=== PATIENT | female | born 1985 | race Caucasian/White ===

== ENCOUNTER 2018-11-29 10:15 | Emergency (ER) | payer OTHER ==
--- NOTE | 2018-11-29 11:28 | EDM.PDOC ---
ED HPI GENERAL MEDICAL PROBLEM - General Chief Complaint: Lower Extremity Injury/Pain Stated Complaint: fall right ankle injury Time Seen by Provider: 11/29/18 10:45 Source of Information: Reports: Patient History Limitations: Reports: No Limitations - History of Present Illness INITIAL COMMENTS - FREE TEXT/NARRATIVE: This patient presents to the ED for evaluation of right ankle pain. She states she fell rolling her ankle several hours ago. She denies other injuries or concerns. Onset: Sudden Onset Date: 11/29/18 Onset Time: 02:30 right ankle Pain Score (Numeric/FACES): 4 - Related Data Allergies Allergy/AdvReac Type Severity Reaction Status Date / Time hydromorphone [From Dilaudid] Allergy Other Verified 11/29/18 10:16 Home Meds: Home Meds metFORMIN [Glucophage] 1,000 mg PO BIDMEALS 11/29/18 [History] Review of Systems - Review of Systems Review Of Systems: ROS reveals no pertinent complaints other than HPI. Musculoskeletal: Reports: Joint Pain, Joint Swelling ED EXAM, GENERAL - Physical Exam Exam: See Below Exam Limited By: No Limitations General Appearance: Alert, WD/WN, No Apparent Distress Eye Exam: Bilateral Eye: PERRL Ears: Normal External Exam Nose: Normal Inspection Throat/Mouth: Normal Inspection Head: Atraumatic, Normocephalic Neck: Normal Inspection Respiratory/Chest: No Respiratory Distress, No Accessory Muscle Use Extremities: Other (Right ankle swollen over lateral malleolus. No discoloration or deformity. Distal CMS intact. ) Course - Vital Signs Last Recorded V/S: Last Vital Signs Temp 37.8 C 11/29/18 10:35 Pulse 91 11/29/18 10:35 Resp 20 11/29/18 10:35 BP 117/81 11/29/18 10:35 Pulse Ox 99 11/29/18 10:35 - Orders/Labs/Meds Orders: Active Orders 24 hr Category Date Time Status Ankle Min 3V Rt [CR] Stat Exams 11/29/18 10:29 Taken - Re-Assessments/Exams Free Text/Narrative Re-Assessment/Exam: 11/29/18 11:27 This patient presents for evaluation of ankle pain. Signs and symptoms are consistent with an ankle sprain by clinical exam. X-ray shows no signs of fracture. The patients neurovascular status is normal. A head to toe trauma exam is otherwise negative; the likelihood of other serious sequelae of trauma ( spine, head, chest, abdomen, other extremities, pelvis) is low. An ALEX wrap was placed as above for comfort and protection in the acute phase of this injury. Plan is for protected weightbearing, RICE treatment with ice 15 minutes on, 1 hour off, alex wrap. Patient will advance weightbearing and follow-up with primary in 2-3 days. They will begin gentle ROM exercises of the ankle in 2-3 days following instructions provided. Return sooner for increased pain, swelling, erythema, fevers, other areas of concern. Departure - Departure Time of Disposition: 11:30 Disposition: Home, Self-Care 01 Condition: Good Clinical Impression: Ankle sprain - Discharge Information *PRESCRIPTION DRUG MONITORING PROGRAM REVIEWED*: No *COPY OF PRESCRIPTION DRUG MONITORING REPORT IN PATIENT KENNY: No Instructions: Ankle Sprain, [id number], Ankle Exercises-SportsMed Forms: ED Department Discharge Additional Instructions: Take the Naproxen 2 tabs twice a day and use ice. Drink plenty of water. If you have any questions or concerns please call or return. Thanks, have a great dayArely - My Orders Last 24 Hours: My Active Orders 11/29/18 10:29 Ankle Min 3V Rt [CR] Stat - Assessment/Plan Last 24 Hours: My Active Orders 11/29/18 10:29 Ankle Min 3V Rt [CR] Stat
--- NOTE | 2018-11-30 05:05 | CR ---
DATE OF SERVICE: 11/29/18 CLINICAL DATA: Fall. RIGHT ANKLE: There is soft tissue swelling over the lateral malleolus. No acute fracture or dislocation. No lytic or blastic bone lesions. There are plantar and posterior calcaneal spurs. [id number] MTDD
== END 2018-11-29 11:05 | disposition home or self-care (01) ==
LOC: LB.ED 10:15
DX: S93.401A Sprain of unspecified ligament of right ankle, initial encounter (principal); X50.1XXA Overexertion from prolonged static or awkward postures, initial encounter; Z88.5 Allergy status to narcotic agent
CPT/HCPCS: 73610-RT; 99283-25